=== PATIENT | female | born 1960 | race Caucasian/White ===

== ENCOUNTER 2016-09-11 17:00 | Emergency (ER) | payer MEDICAID ==
[~2016-09-11] VITALS: Ht 160 cm; Wt 65.8 kg
[2016-09-11 17:04] VITALS: BP 121/78
[2016-09-11] MEDS ORDERED: VITB1I PO (17:11)
[2016-09-11] MEDS ORDERED: FOLI1TAB90 PO (17:11)
[2016-09-11] MEDS ORDERED: ATOR40TA40 PO (17:11)
[2016-09-11] MEDS ORDERED: ORE25 PO (17:11)
--- NOTE | 2016-09-11 17:18 | NUR ---
56/F BIBA FROM HOME FOR GENERALIZED WEAKNESS AND POSSIBLE SYNCOPE. PT AAOX4. OPENS EYES UPON CALL. HX ETOH AND HTN. LUNGS CLR. PT SAFETY AND COMFORT MEASURES PROVIDED.
--- NOTE | 2016-09-11 17:40 | NUR ---
22G IV TO LAC. BLOOD DRAWN FOR LAB AND SENT. IV PATENT AND INTACT.
--- NOTE | 2016-09-11 17:45 | NUR ---
PT TAKEN TO CT VIA GURNEY BY TECH.
--- NOTE | 2016-09-11 17:49 | NUR ---
PT AMBULATE TO RESTROOM WITH EVEN AND STEADY GAIT FOR SAMPLE.
--- NOTE | 2016-09-11 17:53 | NUR ---
X-Ray at bedside.
[2016-09-11 17:59] LABS: ANION GAP 13.6 (8-16); CALCIUM 8.3 mg/dL (8.5-10.1); CARBON DIOXIDE 30.9 mmol/L (21-32); CREATININE 0.5 mg/dL (0.6-1.3); POTASSIUM 3.5 mmol/L (3.5-5.1)
[2016-09-11 18:04] LABS: BASOPHILS # (AUTO) 0.3 K/uL (0.00-0.22); BASOPHILS % (AUTO) 4.2 % (0.0-2.0); EOSINOPHILS # (AUTO) 0.2 K/uL (0-0.4); HEMATOCRIT 43.7 % (36-48); HEMOGLOBIN 14.3 g/dL (12.0-16.0); LYMPHOCYTES % (AUTO) 42.9 % (20.5-51.1); MEAN CORPUSCULAR HEMOGLOBIN 35 pg (27-31); MEAN CORPUSCULAR HGB CONC 33 g/dL (33-37); MEAN CORPUSCULAR VOLUME 108 fL (80-94); MONOCYTES # (AUTO) 0.4 K/uL (0.8-1.0); MONOCYTES % (AUTO) 6.5 % (1.7-9.3); NEUTROPHILS # (AUTO) 2.9 K/uL (1.8-7.7); NEUTROPHILS % (AUTO) 43.4 % (42.2-75.2); PLATELET COUNT (AUTO) 156 K/uL (140-450); RED BLOOD CELL COUNT(AUTO) 4.06 MIL/uL (4.20-5.40); RED CELL DISTRIBUTION WIDTH 13.6 % (11.6-13.7); WHITE BLOOD COUNT (AUTO) 6.8 K/uL (4.8-10.8)
[2016-09-11 18:06] LABS: ALBUMIN 3.6 g/dL (3.4-5.0); TOTAL BILIRUBIN 0.5 mg/dL (0.0-1.0); TOTAL PROTEIN, SERUM 7.3 g/dL (6.4-8.2)
--- NOTE | 2016-09-11 18:16 | NUR ---
PT BACK FROM CT VIA [place] BY [employer]
[2016-09-11 18:17] LABS: AMPHETAMINE, URINE NEG. ng/ml (NEG <=1000); BARBITURATE, URINE NEG. ng/ml (NEG <=200); BENZODIAZEPINE, URINE NEG. ng/mL (NEG <=200); CANNABINOID, URINE NEG. ng/mL (NEG <=50); COCAINE, URINE NEG. ng/mL (NEG <=300); OPIATE, URINE NEG. ng/mL (NEG <=2000); PHENCYCLIDINE SCREEN,URINE NEG. ng/mL (NEG <=25)
--- NOTE | 2016-09-11 19:12 | NUR ---
RECEIVED REPORT FROM KIMANI DAWSON. PT AAO X4.
[2016-09-11] MEDS ORDERED: NACL 0.9% 1,000 ML IV ONE (19:25)
--- NOTE | 2016-09-11 19:57 | NUR ---
IV removed, catheter intact and site benign. Applied folded 4x4 gauze and tape to stop bleeding.
[2016-09-11 20:00] VITALS: BP 117/65
--- NOTE | 2016-09-11 20:00 | NUR ---
Patient discharged with v/s stable. Written and verbal after care instructions given and explained. Patient verbalized understanding. Ambulatory with steady gait. All questions addressed prior to discharge. Advised to follow up with PMD. ID BAND REMOVED
== END 2016-09-11 20:00 | disposition home or self-care (01) ==
LOC: MED 17:00
DX: G92 Toxic encephalopathy (principal); I10 Essential (primary) hypertension; F10.20 Alcohol dependence, uncomplicated; Y90.8 Blood alcohol level of 240 mg/100 ml or more
CPT/HCPCS: 36415; 70450; 71010; 80053; 80305; 82550; 84484; 85025; 93005; 99285; G0482; J7030; Q0092

== ENCOUNTER 2018-01-22 19:08 | Inpatient (IN) | payer MEDICAID, OTHER ==
[~2018-01-22] VITALS: Ht 157.5 cm; Wt 53.5 kg
[~2018-01-22 19:08] MED LIST: ATOR40TA40 PO; FOLI1TAB90 PO; ORE25 PO; VITB1I PO
[2018-01-22 19:09] VITALS: BP 139/88
--- NOTE | 2018-01-22 19:09 | NUR ---
PT BIBA BLS TO BED 3
--- NOTE | 2018-01-22 19:15 | NUR ---
58/F BIBA FROM HOME. PT REPORTS HAVING N/V X2 DAYS WITH BROWN DISCHARGE, NOT SURE IF THERE IS BLOOD. PT REPORTS NO APPETITE. PT REPORTS BINGE DRINKING ON ALCOHOL 4 DAYS AGO, IS A SMOKER, DENIES SUBSTANCE ABUSE. PT WAS GIVEN 4MG ZOFRAN ODT AND 4MG ZOFRAN IVP ON L AC 18G BY EMS. LUNG SOUNDS CLEAR BL. ABD SOFT ROUND NONTENDER, BS HYPOACTIVE X4. PT DENIES MED HX, RX. NKA. ER MD MADE AWARE.
--- NOTE | 2018-01-22 19:30 | NUR ---
PT UNABLE TO COLLECT URINE AT THIS TIME
[2018-01-22] MEDS ORDERED: NACL 0.9% 1,000 ML IV ONE (20:05)
[2018-01-22] MEDS ORDERED: ONDANSETRON 4 MG/2 ML VIAL IVP ONE (20:05)
--- NOTE | 2018-01-22 20:37 | NUR ---
PT TAKEN TO CT
[2018-01-22 20:43] LABS: BASOPHILS # (AUTO) 0.1 K/uL (0.00-0.22); EOSINOPHILS % (AUTO) 0.3 % (0.0-4.0); LYMPHOCYTES # (AUTO) 1.4 K/uL (2.5-16.5); MEAN CORPUSCULAR VOLUME 110.1 fL (80-94); MONOCYTES # (AUTO) 0.4 K/uL (0.8-1.0); NEUTROPHILS # (AUTO) 4.8 K/uL (1.8-7.7); WHITE BLOOD COUNT (AUTO) 6.7 K/uL (4.8-10.8)
[2018-01-22 20:50] LABS: ANION GAP 27.1 (8-16); CARBON DIOXIDE 18.4 mmol/L (21-32); CREATININE 0.6 mg/dL (0.6-1.3); POTASSIUM 3.5 mmol/L (3.5-5.1)
[2018-01-22 20:56] LABS: BASOPHILS % (AUTO) 0.8 % (0.0-2.0); HEMATOCRIT 40.8 % (36-48); HEMOGLOBIN 13.5 g/dL (12.0-16.0); LYMPHOCYTES % (AUTO) 21.4 % (20.5-51.1); MEAN CORPUSCULAR HEMOGLOBIN 37 pg (27-31); MEAN CORPUSCULAR HGB CONC 33 g/dL (33-37); NEUTROPHILS % (AUTO) 71.5 % (42.2-75.2); PLATELET COUNT (AUTO) 95 K/uL (140-450); RED CELL DISTRIBUTION WIDTH 13.9 % (11.6-13.7)
[2018-01-22 20:57] LABS: ALBUMIN 4.1 g/dL (3.4-5.0); TOTAL BILIRUBIN 4.7 mg/dL (0.0-1.0)
[2018-01-22 21:34] LABS: APPEARANCE,URINE CLEAR (CLEAR); BILIRUBIN,URINE 1+ (NEGATIVE); BLOOD, URINE NEGATIVE (NEGATIVE); COLOR,URINE YELLOW (YELLOW); LEUKOCYTE ESTERASE ,URINE NEGATIVE (NEGATIVE); NITRITE, URINE NEGATIVE (NEGATIVE); UGLUCOSE NEGATIVE (NEGATIVE)
[2018-01-22] MEDS ORDERED: VANCOMYCIN 1,000 MG in DEXTROSE 5% 250 ML IV ONE (21:35)
[2018-01-22] MEDS ORDERED: PIPERACILLIN/TAZOBACTAM 3.375 GM in DEXTROSE 5% 50 ML IV ONE (21:35)
[2018-01-22 21:46] LABS: RBC,URINE 0-5 (RARE) /HPF (0-5)
[2018-01-22] MEDS ORDERED: PIPERACILLIN/TAZOBACTAM 3.375 GM VIAL IV ONE (21:46)
[2018-01-22] MEDS ORDERED: VANCOMYCIN 1,000 MG VIAL ONE (21:46)
[2018-01-22 21:51] LABS: BARBITURATE, URINE NEG. ng/ml (NEG <=200); BENZODIAZEPINE, URINE NEG. ng/mL (NEG <=200); CANNABINOID, URINE NEG. ng/mL (NEG <=50); COCAINE, URINE NEG. ng/mL (NEG <=300); OPIATE, URINE NEG. ng/mL (NEG <=2000); PHENCYCLIDINE SCREEN,URINE NEG. ng/mL (NEG <=25)
--- NOTE | 2018-01-22 23:44 | NUR ---
PT SLEEPING COMFORTABLY, AROUSABLE TO NAME. VSS, DENIES PAIN OR NAUSEA. ALL NEEDS MET AT THIS TIME.
[2018-01-22 23:59] VITALS: BP 144/86
--- NOTE | 2018-01-22 23:59 | NUR ---
RECEIVED REPORT FROM ER NURSE AT BEDSIDE FOR CONTINUITY OF CARE. IV NOTED LAC 18 SALINE LOCK. NO SOB NO S/S OF DISTRESS ON RA. BED LOWERED CALL LIGHT WITHIN REACH PT ORIENTED TO ROOM. WILL CONTINUE TO MONITOR.
--- NOTE | 2018-01-23 | NUR ---
STARTED FLUIDS D5 1/2 NS AT 100ML/HR. PT IS NPO EXCEPT MEDS. WILL CONTINUE TO MONITOR. AT THIS TIME PT HAS NO NAUSEA OR VOMIT.
[2018-01-23] MEDS: DEXT 5% / NACL 0.45% 1,000 ML IV SCH ×3 (00:45→18:32)
[2018-01-23 04:00] VITALS: BP 116/74
--- NOTE | 2018-01-23 04:59 | NUR ---
PT IS SLEEPING NO SOB NO S/S OF DISTRESS WILL CONTINUE TO MONITOR.
--- NOTE | 2018-01-23 07:12 | NUR ---
PATIENT HAS BEEN SCREENED AND CATEGORIZED HIGH RISK. PATIENT WILL BE SEEN WITHIN 1-2 DAYS OF ADMISSION. 01/24- [address]
--- NOTE | 2018-01-23 07:28 | NUR ---
ENDORSED REPORT TO DAYSHIFT NURSE AT BEDSIDE FOR CONTINUITY OF CARE.
--- NOTE | 2018-01-23 07:29 | NUR ---
RECEIVED REPORT FROM SAND CASTER APPRENTICE NURSE PORSHA AT BEDSIDE FOR CONTINUITY OF CARE. PT IS AWAKE AND ORIENTED X4. INTRODUCED SELF AND UPDATED BOARD. PT DENIES ABD PAIN. NO SIGNS OF DISTRESS. O2 SAT 96% ON RA. NO COUGH. LUNG SOUNDS CLEAR ON AUSCULTATION. SKIN INTACT. IV TO L AC 18G INTACT. D51/2NS @ 100ML/HR. CALL LIGHT WITHIN REACH. BED IN LOW POSITION, WILL CONTINUE TO MONITOR.
[2018-01-23 07:54] VITALS: BP 123/79
--- NOTE | 2018-01-23 11:17 | NUR ---
PT AWAKE. AMBULATED TO BATHROOM WITH STEADY GAIT. NO SIGNS OF DISTRESS. CALL LIGHT WITHIN REACH. WILL CONTINUE TO MONITOR.
[2018-01-23 11:57] VITALS: BP 114/72
--- NOTE | 2018-01-23 13:08 | NUR ---
PT WAS ASKING IF SHE COULD EAT. EXPLAINED TO PT THAT SHE IS NPO. PAGED DR. FORRESTER. NO CALL BACK YET.
--- NOTE | 2018-01-23 13:30 | NUR ---
DR. FORRESTER CAME IN TO SEE PT. ORDERED RECEIVED.
[2018-01-23] MEDS ORDERED: LORazepam 2 MG/ML VIAL IVP PRN (13:40)
[2018-01-23] MEDS ORDERED: MULTIVITAMIN-12 10 ML, THIAMINE 100 MG, FOLIC ACID 5 MG in NACL 0.9% 1,000 ML IV SCH (14:30)
--- NOTE | 2018-01-23 14:44 | NUR ---
STARTED BANANA BAG 1,000ML AT 250ML/HR. PT TOLERATING WELL. NO S/SX OF WITHDRAWAL. PT REPORTED NONE. PT ON REGULAR DIET. GAVE CHICKEN SALAD SANDWICH AND JELL-O. PT TOLERATED WELL. NO NAUSEA OR VOMITING OBSERVED OR REPORTED. PT GOT UP TO USE RESTROOM. WALKED WITH STEADY GAIT. WENT BACK TO SLEEP. NO SIGNS OF DISTRESS. CALL LIGHT WITHIN REACH. BED IN LOW POSITION, WHEELS LOCKED. WILL CONTINUE TO MONITOR.
--- NOTE | 2018-01-23 15:30 | NUR ---
DR. RITCHIE CAME IN CONSULT.
[2018-01-23 16:00] VITALS: BP 116/71
--- NOTE | 2018-01-23 17:47 | NUR ---
PT AWAKE AND EATING DINNER TRAY. NO S/S OF WITHDRAWAL. PT DENIES PAIN. CALL LIGHT WITHIN REACH. BED IN LOW POSITION, WHEELS LOCKED. WILL CONTINUE TO MONITOR.
--- NOTE | 2018-01-23 19:13 | NUR ---
ENDORSED PT TO MANAGER SYSTEMS NURSE SHELLEY AT BEDSIDE FOR CONTINUITY OF CARE. PT IN STABLE CONDITION.
--- NOTE | 2018-01-23 19:27 | NUR ---
RECEIVED FROM AM RN IN BED SLEEPING. WOKE UP EASILY WHEN CALLED BY NAME. INTRODUCED MYSELF. ABLE TO VERBALIZE NEEDS WELL IN URDU. CARE PLANS FOR THE NIGHT DISCUSSED WITH HER. CALL LIGHT WITH IN REACH. TELEMETRY MONITORING. NO SOB. NO COMPLAINTS OR TREMBLING RT ALCOHOL WITHDRAWAL.
[2018-01-23 19:44] VITALS: BP 117/61
[2018-01-23] MEDS: PIPER/TAZO 3.375GM/D5W PREMIX 50 ML IV SCH (20:36)
--- NOTE | 2018-01-23 20:40 | NUR ---
AWAKE AT THIS TIME. PT. ABLE TO VERBALIZE NEEDS WELL. IV ABT ZOSYN INFUSED AT THIS TIME. CALL LIGHT WITH IN REACH. A/O X 4. ASKED IF SHE NEEDS ANYTHING ELSE. "NO..I JUST WANT TO SLEEP." NO SEDATIVE OR SLEEPING PILLS FOR ME. ENCOURAGED TO CALL IF SHE THINKS SHE FEELS LIKE HER SKIN IS TREMBLING OR IF SHE HAS ANY TREMORS RT ETOH WITHDRAWAL. "OK" NO TREMBLING NOTED AT THIS TIME.
--- NOTE | 2018-01-23 22:14 | NUR ---
ENDORSED TO THE NEXT RN FOR CONTINUITY OF CARE.
--- NOTE | 2018-01-23 22:14 | NUR ---
RECEIVED REPORT FROM SHELLEY PROTECTION ANALYSTCOFFEE BREAK ATTENDANT NURSE FOR CONTINUITY OF CARE.
[2018-01-23] MEDS: NEOMYCIN 500 MG TAB PO SCH (23:36)
[2018-01-24] VITALS: BP 116/71
--- NOTE | 2018-01-24 | NUR ---
PT IN LOW BED SIDE RAILS UP X2. PT AOX 4 , SKIN IN TACT AND IV SITE ON LEFT F/A RUNNING 1/2 N/S AT 100MLS/HR. PT DENIES PAIN AT THIS TIME. IV SITE FLUSHED PATENT AND PT GIVEN ALL MEDICATION DUE , NO ADVERSE SIDE EFFECTS OF MEDS NOTED.ALL REQUESTED NEEDS ATTENDED BY STAFF.
--- NOTE | 2018-01-24 02:00 | NUR ---
IV SITE ALARMING, IV LINE RE-PRIMED AND IV SITE FLUSHED PATENT. PT HAS NO C/O VOICED EXCEPT TRYING TO GET SOME REST. REQUESTED NEEDS ATTENDED BY STAFF. WILL CONTINUE TO MONITOR PT FOR ANY DISCOMFORT.
[2018-01-24 04:00] VITALS: BP 124/79
[2018-01-24] MEDS: DEXT 5% / NACL 0.45% 1,000 ML IV SCH ×2 (04:35→14:32)
--- NOTE | 2018-01-24 04:35 | NUR ---
PT AWAKE AND EXPRESSED DIFFICULTY GETTING TO SLEEP. NO C/ OF PAIN EXPRESSED IV SITE FLUSHED PATENT. PT ASSISTED INTO A NEW GOWN AND MADE COMFORTABLE IN BED V/S FOLLOWS T 97.9 P 80 R 20 B/P 124/79 02 98% W R/A
[2018-01-24] MEDS: PIPER/TAZO 3.375GM/D5W PREMIX 50 ML IV SCH ×2 (05:36→12:49)
[2018-01-24] MEDS: NEOMYCIN 500 MG TAB PO SCH ×2 (05:40→12:03)
[2018-01-24 06:02] LABS: BASOPHILS # (AUTO) 0.1 K/uL (0.00-0.22); BASOPHILS % (AUTO) 1.3 % (0.0-2.0); EOSINOPHILS # (AUTO) 0.1 K/uL (0-0.4); EOSINOPHILS % (AUTO) 1.5 % (0.0-4.0); HEMATOCRIT 33.6 % (36-48); HEMOGLOBIN 11.6 g/dL (12.0-16.0); LYMPHOCYTES # (AUTO) 1.7 K/uL (2.5-16.5); LYMPHOCYTES % (AUTO) 30.6 % (20.5-51.1); MEAN CORPUSCULAR HEMOGLOBIN 37 pg (27-31); MEAN CORPUSCULAR HGB CONC 35 g/dL (33-37); MEAN CORPUSCULAR VOLUME 107.4 fL (80-94); MONOCYTES # (AUTO) 0.3 K/uL (0.8-1.0); MONOCYTES % (AUTO) 5.7 % (1.7-9.3); NEUTROPHILS # (AUTO) 3.4 K/uL (1.8-7.7); NEUTROPHILS % (AUTO) 60.9 % (42.2-75.2); PLATELET COUNT (AUTO) 66 K/uL (140-450); RED BLOOD CELL COUNT(AUTO) 3.12 MIL/uL (4.20-5.40); RED CELL DISTRIBUTION WIDTH 13.7 % (11.6-13.7); WHITE BLOOD COUNT (AUTO) 5.6 K/uL (4.8-10.8)
[2018-01-24 07:20] LABS: ALBUMIN 3.3 g/dL (3.4-5.0); ANION GAP 12.6 (8-16); CREATININE 0.5 mg/dL (0.6-1.3); TOTAL BILIRUBIN 3.5 mg/dL (0.0-1.0)
[2018-01-24 07:36] LABS: POTASSIUM 2.6 mmol/L (3.5-5.1)
--- NOTE | 2018-01-24 07:37 | NUR ---
REPORT GIVEN TO WILIAM RN DAYSHIFT NURSE AT BEDSIDE FOR CONTINUITY OF CARE, PT IN STABLE CONDITION
--- NOTE | 2018-01-24 07:38 | NUR ---
RECEIVED REPORT FROM PARACHUTE MARKER NURSE LEANN AT BEDSIDE FOR CONTINUITY OF CARE. PT IS AWAKE AND ORIENTED X4. INTRODUCED SELF AND UPDATED BOARD. PT DENIES PAIN. DENIES NAUSEA AND VOMITING. NO COUGH. LUNG SOUNDS CLEAR. O2 SAT 98% ON RA. SKIN INTACT. IV TO L AC 18G INTACT. NO SIGNS OF DISTRESS. CALL LIGHT WITHIN REACH. BED IN LOW POSITION. WHEELS LOCKED. WILL CONTINUE TO MONITOR.
--- NOTE | 2018-01-24 07:50 | NUR ---
REPORTED TO DR. FORRESTER PT'S K 2.6. ORDERS RECEIVED.
[2018-01-24 08:00] VITALS: BP 120/75
--- NOTE | 2018-01-24 08:39 | NUR ---
PT'S ROOMMATE IN ROOM 111A WAS TELLING NURSE TO SWITCH ROOMS STATED "WE'RE GOING TO HAVE A PROBLEM IF WE DON'T SWITCH ROOMS." PT AGREED. MOVED PT TO ROOM 108A. ALL BELONGINGS SENT WITH PT.
[2018-01-24] MEDS: POTASSIUM CHLORIDE 10 MEQ TABER PO SCH ×2 (08:58→12:03)
[2018-01-24] MEDS ORDERED: PANTOPRAZOLE 40 MG INJ VIAL IVP SCH (09:00)
[2018-01-24 12:00] VITALS: BP 120/86
--- NOTE | 2018-01-24 13:00 | NUR ---
ADMINISTERED ZOSYN IVPB. PT TOLERATED WELL. CHANGED PT'S GOWN. PT WAS ASKING FOR DR. FORRESTER. TOLD PT SHE HAS NOT COME IN YET. VERBALIZED UNDERSTANDING. NO SIGNS OF DISTRESS. CALL LIGHT WITHIN REACH. BED IN LOW POSITION, WHEELS LOCKED. WILL CONTINUE TO MONITOR.
--- NOTE | 2018-01-24 14:10 | NUR ---
PT WAS STATING THAT SHE WANTS TO LEAVE THE HOSPITAL NOW. ASKED PT IF SHE WANTED TO WAIT FOR DR. FORRESTER. REPORTED TO DR. FRORESTER THAT PT WANTS TO LEAVE. WILL COME AND SEE PT.
--- NOTE | 2018-01-24 15:43 | NUR ---
PT WAS STATING THAT SHE WANTED TO LEAVE HOSPITAL AND GO HOME. SAID SHE WAS NOT GETTING ENOUGH REST HERE AND ONLY CAME FOR HER ABD PAIN AND FELT NO MORE PAIN NOW. NO ORDER FOR D/C TODAY. PT STILL WANTED TO LEAVE. GAVE AMA PAPERWORK. PT REFUSED TO SIGN. REMOVED TELE MONITOR, ID BAND, IV CATHETER TO L AC 18G. IV CATHETER TIP INTACT. APPLIED DRESSING AND PRESSURE TO SITE. NO BLEEDING NOTED. PT CHANGED IN OWN CLOTHES AND LEFT WITH ALL PERSONAL BELONGINGS. LEFT UNIT VIA AMBULATION ACCOMPANIED BY STUDENT. PT WAS PICKED UP BY FRIEND. LEFT IN STABLE CONDITION. DR. FORRESTER AWARE OF PT AMA.
--- NOTE | 2018-01-25 10:08 | NUR ---
RETRO CM NOTE ER 'S NOTES, H&P, CONSULTATION NOTE FAXED TO [facility] [phone]
== END 2018-01-24 15:43 | disposition left against medical advice (07) | DRG 463 ==
LOC: MED 19:08 → MTU 22:39
PROVIDERS: ADMIT Hospitalist; ATTEND Hospitalist
DX: N30.80 Other cystitis without hematuria (principal); E87.8 Other disorders of electrolyte and fluid balance, not elsewhere classified; D69.6 Thrombocytopenia, unspecified; E87.1 Hypo-osmolality and hyponatremia; I10 Essential (primary) hypertension; K74.60 Unspecified cirrhosis of liver; F17.210 Nicotine dependence, cigarettes, uncomplicated; K72.90 Hepatic failure, unspecified without coma; F10.10 Alcohol abuse, uncomplicated; Y90.9 Presence of alcohol in blood, level not specified; Z53.21 Procedure and treatment not carried out due to patient leaving prior to being seen by health care provider; Z90.49 Acquired absence of other specified parts of digestive tract
CPT/HCPCS: 36415; 71045; 76705; 80053; 80305; 81001; 83605; 85025; 87040; 87081; 87086; 93005; 96361; 96365; 96367; 96375; 99285; A9153; C9113; J2405; J2543; J3370; J3411; J3490; J7030; Q0092

== ENCOUNTER 2018-05-13 10:40 | Inpatient (IN) | payer OTHER ==
[~2018-05-13] VITALS: Ht 165.1 cm; Wt 54.9 kg
[2018-05-13 10:51] VITALS: BP 136/99
--- NOTE | 2018-05-13 10:57 | NUR ---
PT AMBULATES TO BED 3
--- NOTE | 2018-05-13 11:00 | NUR ---
58 YO F BIB SELF W/ REFERRAL FROM PCP DR BLANCO FOR THERAPEUTIC PARACENTESIS RELATED TO SEVERE ASCITIS FROM LIVER CIRRHOSIS. PT STATES PAIN 10/10. AAOX4, PRESENTS VERY WEAK. GCS 15. AMBULATORY W/ STEADY GAIT. SKIN WARM/DRY TO THE TOUCH. BED LOW, LOCKED , BEDRAIL UP X 1, ER AWARE AND NOTIFIED OF PT STATUS. HX CIRRHOSIS OF THE LIVER RX VANCOMYCIN 125 MG 1 CAP Q6 X 10 DAYS FOR BACTERIAL INFECTION OF THE INTESTINE
--- NOTE | 2018-05-13 11:18 | NUR ---
Patient being evaluated by physician at bedside.
--- NOTE | 2018-05-13 11:20 | NUR ---
LAB AT BEDSIDE
--- NOTE | 2018-05-13 11:40 | NUR ---
RADIOLOGY AT BEDSIDE.
--- NOTE | 2018-05-13 11:43 | NUR ---
RAD AT BEDSIDE
[2018-05-13 11:51] LABS: BASOPHILS # (AUTO) 0.2 K/uL (0.00-0.22); BASOPHILS % (AUTO) 1.9 % (0.0-2.0); EOSINOPHILS # (AUTO) 0.1 K/uL (0-0.4); EOSINOPHILS % (AUTO) 1.2 % (0.0-4.0); HEMOGLOBIN 12.1 g/dL (12.0-16.0); LYMPHOCYTES # (AUTO) 1.4 K/uL (2.5-16.5); LYMPHOCYTES % (AUTO) 17.6 % (20.5-51.1); MEAN CORPUSCULAR HEMOGLOBIN 36 pg (27-31); MEAN CORPUSCULAR HGB CONC 33 g/dL (33-37); MONOCYTES # (AUTO) 0.4 K/uL (0.8-1.0); MONOCYTES % (AUTO) 4.5 % (1.7-9.3); NEUTROPHILS # (AUTO) 6.1 K/uL (1.8-7.7); NEUTROPHILS % (AUTO) 74.8 % (42.2-75.2); PLATELET COUNT (AUTO) 227 K/uL (140-450); RED CELL DISTRIBUTION WIDTH 17.1 % (11.6-13.7); WHITE BLOOD COUNT (AUTO) 8.2 K/uL (4.8-10.8)
--- NOTE | 2018-05-13 12:09 | NUR ---
PARACENTISIS AT BEDSIDE AT THIS TIME.
[2018-05-13] MEDS ORDERED: LIDOCAINE MPF 1% - 5 mL VIAL 20 ML ONE (12:10)
--- NOTE | 2018-05-13 12:22 | NUR ---
PARACENTSIS DRAINGAGE [phone] MLS, YELLOW FLUID.
--- NOTE | 2018-05-13 12:23 | NUR ---
LAB CALLED WITH CRITICAL LACTIC ACID VALUE OF 2.1. ER MD MEMBRENO NOTIFIED. WILL CONTINUE TO [facility].
[2018-05-13] MEDS ORDERED: NACL 0.9% 1,750 ML IV ONE (12:25)
[2018-05-13 12:39] LABS: PROTHROMBIN TIME 13.3 secs (10.8-13.4)
--- NOTE | 2018-05-13 13:30 | NUR ---
WARM BLANKET PROVIDED TO PT. BED IN LOWER LOCKED POSITION. NAD.
[2018-05-13 13:33] LABS: GLUCOSE,BODY FLUID 101 mg/dL
[2018-05-13 13:48] LABS: CARBON DIOXIDE 20.6 mmol/L (21-32); CREATININE 0.6 mg/dL (0.6-1.3); TOTAL BILIRUBIN 3.2 mg/dL (0.0-1.0)
[2018-05-13 13:49] LABS: ALBUMIN 2.4 g/dL (3.4-5.0)
[2018-05-13 13:51] LABS: ANION GAP 21.1 (8-16); POTASSIUM 2.7 mmol/L (3.5-5.1)
[2018-05-13] MEDS ORDERED: POTASSIUM CHLORIDE 10 MEQ TABER PO ONE (13:55)
[2018-05-13 14:04] LABS: APPEARANCE,SPUN,BODY FLUID CLEAR (CLEAR); APPEARANCE,UNSPUN,BODY FLUID HAZY (CLEAR); COLOR,BODY FLUID YELLOW (LT YELLOW); POLYNUCLEAR, BODY FLUID 10 %; RBC, BODY FLUID 61 /cu. mm.; SPECIMENTYPE,BODY FLUID PARACENTESIS; TOTAL VOLUME,BODY FLUID 1270 mL; WBC, BODY FLUID 29 /cu. mm.
[2018-05-13] MEDS ORDERED: ONDANSETRON 4 MG/2 ML VIAL IVP PRN (14:25)
[2018-05-13] MEDS ORDERED: HYDROcodone/APAP 5/325 MG 1 TAB TAB PO PRN (14:25)
[2018-05-13] MEDS ORDERED: ACETAMINOPHEN 325 MG TAB PO PRN (14:25)
[2018-05-13] MEDS ORDERED: cefTRIAXone 1,000 MG VIAL ONE (14:52)
[2018-05-13] MEDS ORDERED: POTASSIUM CHLORIDE 10 MEQ TABER PO SCH (14:54)
--- NOTE | 2018-05-13 14:57 | NUR ---
Patient will be admitted to care of DR. LEDEZMA. Admited to TELEMETRY. Will go to room 120A. Belongings list completed. Report to LATASHA HARMAN.
--- NOTE | 2018-05-13 14:57 | NUR ---
PT TAKEN TO TELE FLOOR BY RNS LEANN AND JUANY
--- NOTE | 2018-05-13 15:15 | NUR ---
RECEIVED REPORT FROM ER NURSE FOR CONTINUITY OF CARE. PT IN STABLE CONDITION. RESPIRATIONS EVEN AND UNLABORED. IV INTACT AND PATENT. SAFETY MEASURES IN PLACE. BED IN LOW POSITION. CALL LIGHT AT BEDSIDE. WILL CONTINUE TO MONITOR.
[2018-05-13 16:00] VITALS: BP 116/67
[2018-05-13 16:04] LABS: APPEARANCE,URINE HAZY (CLEAR); COLOR,URINE YELLOW (YELLOW); UGLUCOSE NEGATIVE (NEGATIVE)
[2018-05-13 16:05] LABS: BILIRUBIN,URINE 1+ (NEGATIVE); BLOOD, URINE NEGATIVE (NEGATIVE); LEUKOCYTE ESTERASE ,URINE SMALL (NEGATIVE); NITRITE, URINE NEGATIVE (NEGATIVE)
[2018-05-13 16:25] LABS: RBC,URINE 3-10 (FEW) /HPF (0-5); WBC,URINE 6-15 (FEW) /HPF (0-5)
[2018-05-13 16:26] LABS: HYALINE CASTS, URINE 0-10 /LPF (None Seen)
[2018-05-13 17:48] LABS: ANION GAP 14.2 (8-16); CARBON DIOXIDE 24.3 mmol/L (21-32); CREATININE 0.6 mg/dL (0.6-1.3)
[2018-05-13 17:55] LABS: POTASSIUM 2.5 mmol/L (3.5-5.1)
--- NOTE | 2018-05-13 17:55 | NUR ---
CRITICAL LAB RESULT K: 2.6. DR RODRIGUES NOTIFIED BY TELEPHONE: 40 K RIDER, PO 40MEQ Q4 X3 DOSES.
[2018-05-13] MEDS ORDERED: POTASSIUM CHLORIDE 40 MEQ, LIDOCAINE MPF 1% - 5 mL VIAL 25 MG in NACL 0.9% 250 ML IV SCH (18:30)
[2018-05-13] MEDS: POTASSIUM CHLORIDE 10 MEQ TABER PO SCH ×2 (18:47→23:07)
--- NOTE | 2018-05-13 19:25 | NUR ---
GAVE REPORT TO NIGHT NURSE FOR CONTINUITY OF CARE. PT IN STABLE CONDITION
--- NOTE | 2018-05-13 19:30 | NUR ---
RECEIVED BEDSIDE REPORT FROM DAY SHIFT RN. PT A&OX4. RESPIRATIONS ARE EQUAL AND UNLABORED. NO SOB. LUNG SOUNDS CLEAR. DENIES ANY SOB OR CHEST PAIN. HAS IV ON LEFT WRIST 20G CURRENTLY INFUSING NS. PT WITH SWOLLEN ABD AND BLE PITTING +1. SKIN IS INTACT. PT S/P PARACENTESIS RLQ REMOVED 1270CC. STRICT I&O SIGN ON DOOR. PLAN OF CARE DISCUSSED WITH PATIENT. SAFETY MEASURES IN PLACE. CALL LIGHT WITHIN REACH. WILL CONTINUE TO MONITOR.
[2018-05-13 20:00] VITALS: BP 115/70
[2018-05-13] MEDS: MORPHINE SULFATE 4 MG/ML SYR IVP PRN (20:37)
[2018-05-13] MEDS: SPIRONOLACTONE 25 MG TAB PO SCH (20:38)
[2018-05-13] MEDS: FUROSEMIDE 40 MG/4 ML VIAL IVP SCH (20:38)
--- NOTE | 2018-05-13 20:38 | NUR ---
DUE MEDICATIONS GIVEN PT TOLERATED WELL. VITAL SIGNS ARE WITHIN NORMAL LIMITS. CALL LIGHT WITHIN REACH.
[2018-05-13 21:28] VITALS: BP 126/76
[2018-05-13] MEDS ORDERED: INFLUENZA VIRUS VACCINE QUAD 0.5 ML SYR IMVAC PRN (22:10)
--- NOTE | 2018-05-13 23:07 | NUR ---
K DUR ADMINISTERED PER ORDERS. PT TOLERATED WELL. VITAL SIGNS WITHIN NORMAL LIMITS. WILL CONTINUE TO MONITOR.
[2018-05-13 23:53] VITALS: BP 135/81
--- NOTE | 2018-05-14 01:00 | NUR ---
ENDORSED PT TO NOE RN. PT STABLE CONDITION.
--- NOTE | 2018-05-14 01:00 | NUR ---
RECEIVED REPORT ON PT IN STABLE CONDITION FOR CONTINUITY OF CARE. PT IS ASLEEP. WITH POTASSIUM RIDER STILL INFUSING. NO DISCOMFORT NOR PAIN NOTED AT THIS TIME. WILL CONTINUE TO MONITOR.
[2018-05-14] MEDS: POTASSIUM CHLORIDE 10 MEQ TABER PO SCH (02:45)
--- NOTE | 2018-05-14 03:00 | NUR ---
PT TOOK THE 3RD DOSE OF K DUR 40 MEQ PO. THEN GOT UP TO BSC. VOIDED. WELL.
[2018-05-14 03:54] VITALS: BP 117/77
--- NOTE | 2018-05-14 05:00 | NUR ---
PT SLEEPING WELL. NO DISCOMFORT NOR PAIN NOTED. WILL CONTINUE TO MONITOR.
--- NOTE | 2018-05-14 06:40 | NUR ---
MADE ROUNDS . PT IS AWAKE AND NO C/O ANY PAIN NOTED.
--- NOTE | 2018-05-14 07:20 | NUR ---
ENDORSED PT IN STABLE CONDITION TO AM NURSE.
--- NOTE | 2018-05-14 07:24 | NUR ---
RECEIVED BEDSIDE REPORT FROM MOTOR VEHICLES INSPECTOR RN. PT SLEEPING IN BED, AROUSABLE BY VOICE. A&OX4. SKIN INTACT. RESPIRATIONS EVEN AND UNLABORED, DENIES SOB. DENIES PAIN AND DISCOMFORT AT THIS TIME. ABD DISTENDED AND RLE 2+ PITTING AND LLE 1+ PITTING EDEMA. IV SITE PATENT AND ASYMPTOMATIC, ON SL. SKIN IS INTACT. PT S/P PARACENTESIS 05/13. USES BEDSIDE COMMODE. PER MOTOR VEHICLES INSPECTOR RN, PATIENT IS AMBULATORY. STRICT I&O. PLAN OF CARE DISCUSSED WITH PATIENT. PATIENT VERBALIZED COMPLETE UNDERSTANDING. ALL SAFETY PRECAUTIONS IN PLACE, WILL CONTINUE TO MONITOR.
[2018-05-14 07:30] LABS: BASOPHILS # (AUTO) 0.1 K/uL (0.00-0.22); BASOPHILS % (AUTO) 1.1 % (0.0-2.0); EOSINOPHILS # (AUTO) 0.1 K/uL (0-0.4); HEMATOCRIT 34.9 % (36-48); HEMOGLOBIN 11.6 g/dL (12.0-16.0); LYMPHOCYTES # (AUTO) 2.6 K/uL (2.5-16.5); LYMPHOCYTES % (AUTO) 27.5 % (20.5-51.1); MEAN CORPUSCULAR HEMOGLOBIN 36 pg (27-31); MEAN CORPUSCULAR HGB CONC 33 g/dL (33-37); MEAN CORPUSCULAR VOLUME 108.7 fL (80-94); MONOCYTES # (AUTO) 0.7 K/uL (0.8-1.0); MONOCYTES % (AUTO) 7.3 % (1.7-9.3); NEUTROPHILS % (AUTO) 63.1 % (42.2-75.2); PLATELET COUNT (AUTO) 198 K/uL (140-450); RED BLOOD CELL COUNT(AUTO) 3.21 MIL/uL (4.20-5.40); RED CELL DISTRIBUTION WIDTH 17.1 % (11.6-13.7); WHITE BLOOD COUNT (AUTO) 9.6 K/uL (4.8-10.8)
[2018-05-14 07:56] LABS: ALBUMIN 1.9 g/dL (3.4-5.0); ANION GAP 14.4 (8-16); CARBON DIOXIDE 24.8 mmol/L (21-32); CREATININE 0.6 mg/dL (0.6-1.3); MAGNESIUM 1.3 mg/dL (1.8-2.4); POTASSIUM 4.2 mmol/L (3.5-5.1); TOTAL BILIRUBIN 2.4 mg/dL (0.0-1.0)
[2018-05-14 08:00] VITALS: BP 90/57
--- NOTE | 2018-05-14 08:29 | NUR ---
PATIENT HAS BEEN SCREENED AND CATEGORIZED MODERATE NUTRITION RISK. PATIENT WILL BE SEEN WITHIN 3-5 DAYS OF ADMISSION. 05/16/18 05/18/[address]
--- NOTE | 2018-05-14 09:05 | NUR ---
NOTIFIED DR. DEWITT THAT MAGNESIUM IS 1.3.
[2018-05-14] MEDS ORDERED: MAG SULF 2000 MG/WATER PREMIX 50 ML IV ONE (09:15)
[2018-05-14] MEDS ORDERED: SPIR50TA PO (09:22)
[2018-05-14] MEDS ORDERED: PHARMACY COMMENTS MC SCH (09:30)
[2018-05-14 09:36] VITALS: BP 121/86
--- NOTE | 2018-05-14 09:36 | NUR ---
RECHECKED BP BEFORE LASIX AND SPIRONOLACTONE ADMINISTRATION. BP 121/86, MAP 94, HR 85.
[2018-05-14] MEDS: MAGNESIUM SULFATE 1GM in DEXTROSE 5% 100 ML PREMIX IV SCH ×2 (09:40→11:02)
[2018-05-14] MEDS: SPIRONOLACTONE 25 MG TAB PO SCH (09:41)
[2018-05-14] MEDS: FUROSEMIDE 40 MG/4 ML VIAL IVP SCH (09:41)
[2018-05-14] MEDS: MORPHINE SULFATE 4 MG/ML SYR IVP PRN (09:53)
--- NOTE | 2018-05-14 10:22 | NUR ---
CM NOTE PER SATHISH OF [facility] (PCP) PH# [phone], PATIENT IS SCHEDULED FOR OUTPATIENT FOLLOW UP ON MAY 20, 2018 10 AM AT THE CLINIC IN [address] [place] [address]. I GAVE A COPY OF THE OUTPATIENT FOLLOW SCHEDULE TO THE PATIENT.
--- NOTE | 2018-05-14 11:17 | NUR ---
ADMINISTERED SECOND BAG OF MAG SULFATE. HELPED PATIENT TO BEDSIDE COMMODE. NOTIFIED HOUSEKEEPING TO CLEAN AREA AROUND COMMODE.
[2018-05-14] MEDS ORDERED: VANCOMYCIN 500 MG VIAL PO SCH (12:00)
--- NOTE | 2018-05-14 12:49 | NUR ---
DISCHARGE PAPERWORK, INCLUDING INSTRUCTIONS TO F/U WITH PCP AND HAND CROWN POUNCER AND NEW PRESCRIPTIONS, GIVEN TO PATIENT. CM HAS MADE PCP APPOINTMENT FOR PATIENT AND GAVE PATIENT THE APPOINTMENT CARD. NEW MEDICATION TEACHING AND MED RECON TEACHING GIVEN. PT VERBALIZED COMPLETE UNDERSTANDING ALL OF DISCHARGE INSTRUCTIONS. IV REMOVED WITH MINIMAL BLOOD LOSS AND LUMEN COMPLETELY INTACT. ID BANDS REMOVED. ALL PATIENT BELONGINGS ARE WITH PATIENT. PATIENT HAS REFUSED PNEUMOVAX AND FLU VACCINE. VACCINATION DECLINATION TEACHING GIVEN. PT STATES THAT SHE HAS "SOME REACTION" TO THE FLU VACCINE AND WISHES TO RECEIVE IT ELSEWHERE WHEN SHE FEELS HEALTHIER.
--- NOTE | 2018-05-14 12:54 | NUR ---
TOOK PATIENT TO THE LOBBY VIA WHEELCHAIR. PT IS ABLE TO WALK WITH EVEN AND STEADY GAIT WITHOUT ASSIST.
== END 2018-05-14 12:54 | disposition home or self-care (01) | DRG 280 ==
LOC: MED 10:40 → MTU 14:24
PROVIDERS: ADMIT Hospitalist; ATTEND Hospitalist
PROC: 0W9G3ZZ Drainage of Peritoneal Cavity, Percutaneous Approach (ICD-10-PCS; principal; 2018-05-13)
DX: K70.31 Alcoholic cirrhosis of liver with ascites (principal); E87.2 Acidosis; A04.72 Enterocolitis due to Clostridium difficile, not specified as recurrent; E83.42 Hypomagnesemia; E87.6 Hypokalemia
CPT/HCPCS: 36415; 49083; 71045; 80048; 80053; 81001; 82140; 82945; 83605; 83735; 83880; 84157; 85025; 85610; 85730; 87040; 87081; 87086; 89051; 96361; 96374; 99285; J0696; J1940; J2001; J2270; J3370; J3480; J7030; Q0092

== ENCOUNTER 2018-05-31 07:43 | Day surgery (SDC) | payer OTHER ==
[~2018-05-31] VITALS: Ht 157.5 cm; Wt 50.8 kg
[~2018-05-31 07:43] MED LIST changes: -ATOR40TA40 PO; -FOLI1TAB90 PO; -ORE25 PO; +SPIR50TA PO; -VITB1I PO
== END 2018-05-31 10:30 | disposition home or self-care (01) ==
LOC: MDS 07:43 → MMU 07:43 → MDS 10:30
PROVIDERS: ATTEND Internal Medicine Gastroenterology
DX: K70.31 Alcoholic cirrhosis of liver with ascites (principal); Z79.899 Other long term (current) drug therapy; Z98.890 Other specified postprocedural states; M54.5 Low back pain
CPT/HCPCS: 49083; 76705

== ENCOUNTER 2020-04-20 07:35 | Day surgery (SDC) | payer OTHER, SELFPAY ==
[~2020-04-20] VITALS: Ht 157.5 cm; Wt 57.6 kg
[2020-04-20] MEDS ORDERED: MIDAZOLAM 5 MG/5 ML VIAL ONE (10:25)
[2020-04-20] MEDS ORDERED: LIDOCAINE VISCOUS 2% 20 ML UDC ONE ×2 (10:25→10:47)
[2020-04-20] MEDS ORDERED: fentaNYL citrate 0.05 MG/ML VIAL ONE (10:25)
[2020-04-20] MEDS ORDERED: MIDAZOLAM 2 MG/2 ML VIAL IVP ONE (11:30)
== END 2020-04-20 11:50 | disposition home or self-care (01) ==
LOC: MMU 07:35 → MDS 07:35
PROVIDERS: ATTEND Internal Medicine Gastroenterology
DX: K70.30 Alcoholic cirrhosis of liver without ascites (principal); K44.9 Diaphragmatic hernia without obstruction or gangrene; F17.210 Nicotine dependence, cigarettes, uncomplicated; Z91.048 Other nonmedicinal substance allergy status; Z20.828 Contact with and (suspected) exposure to other viral communicable diseases; Z79.899 Other long term (current) drug therapy
CPT/HCPCS: 43235; J2250; U0003; J3010